=== PATIENT | female | born 1995 | race Caucasian/White ===

== ENCOUNTER 2017-01-06 09:47 | Emergency (ER) | payer OTHER ==
[2017-01-06 10:03] VITALS: BP 117/72; PULSE 62; RESP 16; TEMP 97.5; O2SAT 96
--- NOTE | 2017-01-06 10:04 | EDPHY ---
H & P Stated Complaint: Pos Shingles Time Seen by Provider: 01/06/17 09:58 HPI/ROS: CHIEF COMPLAINT: Rash HISTORY OF PRESENT ILLNESS: The patient is a 22-year-old female with a history of Crohn's disease on several immunosuppressants. She comes to the emergency department complaining of a rash to her right flank that began yesterday. No fever. It is slightly painful. Slightly itchy. REVIEW OF SYSTEMS: Constitutional: denies: chills, fever, recent illness, recent injury EENTM: denies: blurred vision, double vision, nose congestion Respiratory: denies: cough, shortness of breath Cardiac: denies: chest pain, irregular heart rate, lightheadedness, palpitations Gastrointestinal/Abdominal: denies: abdominal pain, diarrhea, nausea, vomiting, blood streaked stools Genitourinary: denies: dysuria, frequency, hematuria, pain Musculoskeletal: denies: joint pain, muscle pain Skin: See HPI Neurological: denies: headache, numbness, paresthesia, tingling, dizziness, weakness Hematologic/Lymphatic: denies: blood clots, easy bleeding, easy bruising Immunologic/allergic: denies: HIV/AIDS, transplant EXAM: GENERAL: Well-appearing, well-nourished and in no acute distress. HEAD: Atraumatic, normocephalic. EYES: Pupils equal round and reactive to light, extraocular movements intact, sclera anicteric, conjunctiva are normal. ENT: TMs normal, nares patent, oropharynx clear without exudates. Moist mucous membranes. NECK: Normal range of motion, supple without lymphadenopathy or JVD. LUNGS: Breath sounds clear to auscultation bilaterally and equal. No wheezes rales or rhonchi. HEART: Regular rate and rhythm without murmurs, rubs or gallops. ABDOMEN: Soft, nontender, normoactive bowel sounds. No guarding, no rebound. No masses appreciated. BACK: No CVA tenderness, no spinal tenderness, step-offs or deformities EXTREMITIES: Normal range of motion, no pitting or edema. No clubbing or cyanosis. NEUROLOGICAL: Cranial nerves II through XII grossly intact. Normal speech, normal gait. 5/5 strength, normal movement in all extremities, normal sensation PSYCH: Normal mood, normal affect. SKIN: Small vesicular rash to right-sided L1 dermatome posteriorly. No sign of cellulitis. No warmth no abscess Source: Patient, Family Exam Limitations: No limitations - Personal History LMP (Females 10-55): Unknown Current Tetanus Diphtheria and Acellular Pertussis (TDAP): Yes Tetanus Vaccine Date: 11/2016 - Medical/Surgical History Hx Asthma: Yes Hx Chronic Respiratory Disease: No Hx Diabetes: No Hx Cardiac Disease: No Hx Renal Disease: No Hx Cirrhosis: No Hx Alcoholism: No Hx HIV/AIDS: No Hx Splenectomy or Spleen Trauma: No Other PMH: Crohns, seasonal allergies, acne, astham, rheumatoid arthritis - Family History Significant Family History: No pertinent family hx - Social History Smoking Status: Never smoked Alcohol Use: Sober Drug Use: None Constitutional: Initial Vital Signs Temperature (C) 36.4 C 01/06/17 10:00 Heart Rate 62 01/06/17 10:00 Respiratory Rate 16 01/06/17 10:00 Blood Pressure 117/72 01/06/17 10:00 O2 Sat (%) 96 01/06/17 10:00 O2 Delivery Mode Room Air Allergies/Adverse Reactions: No Known Allergies Allergy (Verified 08/06/15 20:55) Home Medications: Medication Instructions Recorded Albuterol 10/31/14 Azathioprine 10/31/14 CIMZIA 10/31/14 Loratadine 10/31/14 Niancinamide 10/31/14 Omeprazole 10/31/14 ACETAMINOPHEN 01/06/17 sulfaSALAzine 01/06/17 Medical Decision Making ED Course/Re-evaluation: The patient clearly has shingles. Her primary care thought that it was likely shingles over the phone and called in a prescription for Valtrex. They wanted to come here to verify that that is what it was prior to filling the prescription. She cannot take prednisone because of her other immunosuppressants. She declines narcotics. She will go fill her prescription and began taking Valtrex. Her mom is with her. They both agree with this plan. They declined further workup or testing at this time. Differential Diagnosis: Partial list of the Differential diagnosis considered include but were not limited to; shingles, cellulitis and although unlikely based on the history and physical exam, I also considered allergic reaction, sepsis, burn. I discussed these differential diagnoses and the plan with the patient as well as the usual and expected course. The patient understands that the diagnosis is provisional and that in medicine we are not always correct and that further workup is often warranted. Usual and customary warnings were given. All of the patient's questions were answered. The patient was instructed to return to the emergency department should the symptoms at all worsen or return, otherwise to followup with the physician as we discussed. Departure - Departure Disposition: Home, Routine, Self-Care Clinical Impression: Herpes zoster Qualifiers: Herpes zoster complications: without complications Qualified Code(s): B02.9 - Zoster without complications Condition: Good Instructions: Shingles (ED) Referrals: Yoko Galvan [Primary Care Provider] - As per Instructions
== END 2017-01-06 10:10 | disposition home or self-care (01) ==
LOC: CED 09:47
DX: B02.9 Zoster without complications (principal); J45.909 Unspecified asthma, uncomplicated